=== PATIENT | female | born 1990 | race Caucasian/White ===

== ENCOUNTER 2019-01-03 02:45 | Emergency (ER) | payer BC ==
[2019-01-03 02:54] VITALS: BP 123/53
--- NOTE | 2019-01-03 03:14 | EDM.PDOC ---
ED HPI GENERAL MEDICAL PROBLEM - General Chief Complaint: General Stated Complaint: incision opened up Time Seen by Provider: 01/03/19 03:00 Source of Information: Reports: Patient History Limitations: Reports: No Limitations - History of Present Illness INITIAL COMMENTS - FREE TEXT/NARRATIVE: 28 YO WF presents to ER complaining of drainage from abdominal incision which began tonight. Pt s/p oophorectomy and cyst removal on left lower quadrant of abdomen 3 weeks ago. Pt reports no post op issues until tonight. Pt reports mild erythema with mild pain and drainage tonight. Pt denies fever/chills, no nausea/vomiting. Onset: Today Location: Reports: Abdomen Quality: Reports: Dull Severity: Mild Improves with: Reports: None Worsens with: Reports: None Associated Symptoms: Reports: No Other Symptoms Left Abdomen Pain Score (Numeric/FACES): 2 - Related Data Allergies Allergy/AdvReac Type Severity Reaction Status Date / Time No Known Drug Allergies Allergy Cannot Verified 11/12/15 20:59 Remember Home Meds: Home Meds Sertraline [Zoloft] 25 mg PO DAILY 11/12/15 [History] Cephalexin [Keflex] 500 mg PO Q6HR #40 capsule 01/03/19 [Rx] Estrogen,Con/M-Progest Acet [Prempro 0.625-2.5 mg Tablet] 5 mg PO DAILY [History] Sulfamethoxazole/Trimethoprim [Septra DS] 1 each PO BID #20 tab 01/03/19 [Rx] Past Medical History - Past Health History Medical/Surgical History: Denies Medical/Surgical History ED ROS GENERAL - Review of Systems Review Of Systems: See Below Constitutional: Reports: No Symptoms HEENT: Reports: No Symptoms Respiratory: Reports: No Symptoms Cardiovascular: Reports: No Symptoms Endocrine: Reports: No Symptoms GI/Abdominal: Reports: No Symptoms : Reports: No Symptoms Skin: Reports: Erythema, Wound Neurological: Reports: No Symptoms Psychiatric: Reports: No Symptoms Hematologic/Lymphatic: Reports: No Symptoms Immunologic: Reports: No Symptoms ED EXAM, GENERAL - Physical Exam Exam: See Below Exam Limited By: No Limitations General Appearance: Alert, WD/WN, No Apparent Distress Head: Atraumatic, Normocephalic Neck: Normal Inspection, Supple, Non-Tender, Full Range of Motion Respiratory/Chest: No Respiratory Distress, Lungs Clear, Normal Breath Sounds, No Accessory Muscle Use, Chest Non-Tender Cardiovascular: Normal Peripheral Pulses, Regular Rate, Rhythm, No Edema, No Gallop, No JVD, No Murmur, No Rub GI/Abdominal: Normal Bowel Sounds, Soft, Non-Tender, No Organomegaly, No Distention, No Abnormal Bruit, No Mass Back Exam: Normal Inspection, Full Range of Motion, NT Extremities: Normal Inspection, Normal Range of Motion, Non-Tender, Normal Capillary Refill, No Pedal Edema Neurological: Alert, Oriented, CN II-XII Intact, Normal Cognition, Normal Gait, Normal Reflexes, No Motor/Sensory Deficits Psychiatric: Normal Affect, Normal Mood Skin Exam: Erythema, Increased Warmth, Wound/Incision (purulant drainage from incision site with mild erythema and swelling. ) Lymphatic: No Adenopathy Course - Vital Signs Last Recorded V/S: Last Vital Signs Temp 36.3 C 01/03/19 02:47 Pulse 53 L 01/03/19 02:47 Resp 20 01/03/19 02:47 BP 123/53 L 01/03/19 02:47 Pulse Ox 98 01/03/19 02:47 Departure - Departure Time of Disposition: 03:23 Disposition: Home, Self-Care 01 Condition: Good Clinical Impression: Incisional infection - Discharge Information Prescriptions: Cephalexin [Keflex] 500 mg PO Q6HR #40 capsule Sulfamethoxazole/Trimethoprim [Septra DS] 1 each PO BID #20 tab Instructions: Cellulitis, Adult, Preventing Healthcare-Associated Infections Additional Instructions: 1. discharge home 2. follow up with Dr Shruti Narayanan next 48 hours for recheck 3. septra DS 1 twice a day x 10 days 4. keflex 500mg every 6 hours x 10 days 5. return to ER for fever >101.0, worsening pain, swelling or redness - Assessment/Plan Assessment:: 1. abdominal incision infection Plan: 1. discharge home 2. follow up with Dr Shruti Narayanan next 48 hours for recheck 3. septra DS 1 twice a day x 10 days 4. keflex 500mg every 6 hours x 10 days 5. return to ER for fever >101.0, worsening pain, swelling or redness
[2019-01-03] MEDS ORDERED: Cephalexin 250 MG Cap PO ONE (03:15)
[2019-01-03] MEDS ORDERED: Sulfamethoxazole/Trimethoprim 800-160 MG Tab PO ONE (03:15)
== END 2019-01-03 03:35 | disposition home or self-care (01) ==
LOC: KA.ED 02:45
DX: T81.49XA Infection following a procedure, other surgical site, initial encounter (principal)
CPT/HCPCS: 87070; 87205; 99283; A9270; 87186